=== PATIENT | female | born 1995 | race Caucasian/White ===

== ENCOUNTER 2021-04-28 20:22 | Emergency (ER) | payer OTHER, SELFPAY ==
[2021-04-28 20:25] VITALS: BP 134/93; PULSE 97; RESP 14; TEMP 36.5; O2SAT 100
--- NOTE | 2021-04-28 20:45 | ED.FEMALEGU ---
HPI - Female Genitourinary General Chief complaint: Urogenital-Female Stated complaint: Painful urination Time Seen by Provider: 04/28/21 20:34 Source: patient Mode of arrival: ambulatory Limitations: no limitations History of Present Illness HPI Narrative: This is a 26 year old female that presents to the ER for dysuria noted today. Associated with hematuria and urinary frequency. Reports no concern for STDs. Denies fever or flank pain. Related Data Allergies Allergy/AdvReac Type Severity Reaction Status Date / Time cephalexin Allergy Mild unknown Verified 04/28/21 20:46 dextromethorphan Allergy Mild unknown Verified 04/28/21 20:46 phenylephrine Allergy Mild unknown Verified 04/28/21 20:46 pyrilamine Allergy Mild Unknown Verified 04/28/21 20:46 amoxicillin Allergy Unknown unknown Verified 04/28/21 20:46 azithromycin Allergy Unknown HIVES Verified 04/28/21 20:46 Penicillins Allergy Unknown HIVES Verified 04/28/21 20:46 OLD COUGH SYRUP (POLY DM) Allergy Unknown HIVES Uncoded 04/28/21 20:46 Review of Systems Review of Systems: CONSTITUTIONAL: Denies fever GASTROINTESTINAL: Denies abdominal pain, nausea, vomiting GENITOURINARY: Reports dysuria and hematuria. MUSCULOSKELETAL: Denies back pain All systems reviewed & are unremarkable except as noted in HPI and below PMFSH Past Medical History Medical History Anxiety Depression Family History Family History Mother Depression Family history of bipolar disorder Social History Social History Smoking status: Never smoker Exam Narrative: GENERAL: Well-appearing, well-nourished, and in no acute distress. HEAD: Normocephalic, atraumatic. EYES: EOMI. CHEST: Clear to auscultation. No respiratory distress. No wheezes rales or rhonchi HEART: Regular rate and rhythm. No murmur heard. Normal peripheral pulses. ABDOMEN: No CVA tenderness EXTREMITIES: Normal range of motion. No edema. SKIN: Warm, dry, no rash. NEURO: No focal deficits. Alert and oriented x3. PSYCH: Normal mood and affect Course Vital Signs Vital signs: Vital Signs Temperature 97.7 F 04/28/21 20:25 Pulse Rate 97 04/28/21 20:25 Respiratory Rate 14 04/28/21 20:25 Blood Pressure 134/93 H 04/28/21 20:25 Pulse Oximetry 100 04/28/21 20:25 Temperature 97.7 F 04/28/21 20:25 Pulse Rate 97 04/28/21 20:25 Respiratory Rate 14 04/28/21 20:25 Blood Pressure 134/93 H 04/28/21 20:25 Pulse Oximetry 100 04/28/21 20:25 MDM - Female Genitourinary MDM Narrative Medical decision making narrative: Patient presents to the emergency department for dysuria and hematuria. She is afebrile and nontoxic-appearing. Denies any flank pain or abdominal pain. UA consistent with infection. Bedside test is negative. Patient will be started on oral antibiotics. She is to follow-up with primary care doctor. She was given warnings to return to the ER Lab Data Attestation: I reviewed the patient's lab results. Labs: Lab Results 04/28/21 Range/Units 20:44 Urine Color Red H (Yellow) Urine Appearance Clear (Clear) Urine pH 5.0 (5.0-9.0) Ur Specific [place] 1.023 (1.001-1.035) Urine Protein 3+ H (Negative) mg/dL Urine Glucose (UA) 1+ H (Negative) mg/dL Urine Ketones Negative (Negative) mg/dL Ur Blood (Man) 3+ H (Negative) Urine Nitrate Positive H (Negative) Urine Bilirubin Negative (Negative) Urine Urobilinogen 4.0 H (<2.0) mg/dL Leukocyte Esterase Rfl Trace H (Negative) ANAHI/UL Urine RBC >75 H (0-2) /hpf Urine WBC >75 H (0-3) /hpf Ur Squamous Epith Cells Few (Few) /hpf Urine Bacteria 1+ H (None) /hpf UCG Bedside Result Negative Reference Range: Negative Urine Characteristics Clear
[2021-04-28 21:07] LABS: Add Urine Microscopic? YES; Appearance Urine Clear (Clear); Bilirubin Urine Negative (Negative); Blood Urine 3+ (Negative); Color Urine Red (Yellow); Glucose Urine UA 1+ mg/dL (Negative); Ketones Urine Negative (Negative); Leukocyte Esterase Ur Trace LEU/UL (Negative); Nitrate Urine Positive (Negative); Protein Urine 3+ mg/dL (Negative); Specific Grav Ur 1.023 (1.001-1.035)
[2021-04-28 21:08] LABS: RBC Urine >75 /hpf (0-2); Squamous Epithelial Cell Urine Few /hpf (Few); WBC Urine >75 /hpf (0-3)
[2021-04-28 21:09] LABS: Bacteria Urine 1+ /hpf
== END 2021-04-28 21:45 | disposition home or self-care (01) ==
PROVIDERS: Physician Assistant; Emergency Provider Family Medicine; PCP Emergency Medicine
DX: N30.01 Acute cystitis with hematuria (principal)
CPT/HCPCS: 81001; 81025; 87077; 87086; 87088; 87186; 99283; A9270

== ENCOUNTER 2021-10-28 15:10 | Emergency (ER) | payer OTHER, SELFPAY ==
[2021-10-28 15:23] VITALS: BP 130/86; PULSE 129; RESP 16; TEMP 37.6; O2SAT 100
[2021-10-28 17:45] LABS: Add Urine Microscopic? YES; Appearance Urine Cloudy (Clear); Bacteria Urine Trace /hpf; Bilirubin Urine Negative (Negative); Blood Urine 1+ (Negative); Color Urine Yellow (Yellow); Glucose Urine UA Negative (Negative); Ketones Urine 1+ mg/dL (Negative); Leukocyte Esterase Ur 1+ LEU/UL (Negative); Mucus Urine Rare /lpf; Nitrate Urine Negative (Negative); Protein Urine 1+ mg/dL (Negative); Specific Grav Ur 1.024 (1.001-1.035); Squamous Epithelial Cell Urine Many /hpf (Few); Urobilinogen Urine Negative mg/dL (<2.0); WBC Urine 21-30 /hpf
--- NOTE | 2021-10-28 17:55 | ED.GENADULT ---
HPI - General Adult General Chief complaint: Fever Stated complaint: fever Time Seen by Provider: 10/28/21 16:45 History of Present Illness HPI narrative: 26-year-old female presents the emergency room with complaints of a vaginal pain. Patient states on Wednesday she shaved her genital region, and the following day noticed some discomfort around the recently shaved site. Patient was told the following day that her boyfriend had taken a course of acyclovir several years ago for herpes infection. Patient states that she is also experiencing dysuria. Patient denies any other exposure to STDs, but wishes to be evaluated. Patient reports an intermittent fever. Patient states that she had a cold possibly about 6 months ago. Related Data Home Medications Medication Instructions Recorded Confirmed dextroamphetamine-amphetamine 10/28/21 [Adderall] Allergies Allergy/AdvReac Type Severity Reaction Status Date / Time cephalexin Allergy Mild unknown Verified 05/09/21 09:36 dextromethorphan Allergy Mild unknown Verified 05/09/21 09:36 phenylephrine Allergy Mild unknown Verified 05/09/21 09:36 pyrilamine Allergy Mild Unknown Verified 05/09/21 09:36 amoxicillin Allergy Unknown unknown Verified 05/09/21 09:36 azithromycin Allergy Unknown HIVES Verified 05/09/21 09:36 Penicillins Allergy Unknown HIVES Verified 05/09/21 09:36 Review of Systems Review of Systems: CONSTITUTIONAL: Denies fever, chills, or sweats. EYES: Denies visual changes, redness, or discharge. ENT: Denies rhinorrhea, congestion, sore throat, or otalgia. CARDIOVASCULAR: Denies chest pain, palpitations, or edema. RESPIRATORY: Denies cough or dyspnea. GASTROINTESTINAL: Denies abdominal pain, nausea, vomiting, or diarrhea. GENITOURINARY: Reports dysuria SKIN: Reports pain to the perineum area MUSCULOSKELETAL: Denies back pain, joint pain, or myalgia. NEUROLOGIC: Denies headache, numbness, dizziness, or weakness. PSYCHIATRIC: Denies anxiety or depression. [facility] Past Medical History Medical History Anxiety Depression Family History Family History Mother Depression Family history of bipolar disorder Social History Social History Smoking status: Never smoker Exam Narrative: GENERAL: Well-appearing, well-nourished, and in no acute distress. HEAD: Normocephalic, atraumatic. EYES: PERRLA and EOMI. ENT: Nares clear, no rhinorrhea or epistaxis. Mucous membranes moist. Oropharynx without tonsillar hypertrophy exudate or other lesions. Bilateral TMs pearly puckett nonbulging NECK: Supple. No adenopathy or masses. No carotid bruits or JVD CHEST: Clear to auscultation. No respiratory distress. No wheezes rales or rhonchi HEART: Regular rate and rhythm. No murmur heard. Normal peripheral pulses. ABDOMEN: Soft, nontender, nondistended, normal active bowel sounds. EXTREMITIES: Normal range of motion. No edema. : Unable to assess due to pain SKIN: Several unroofed pearly, papular eruptions to the perineum. NEURO: No focal deficits. Alert and oriented x3. PSYCH: Normal mood and affect. Course Vital Signs Vital signs: Vital Signs Temperature 37.6 C 10/28/21 15:23 Pulse Rate 129 H 10/28/21 15:23 Respiratory Rate 16 10/28/21 15:23 Blood Pressure 130/86 10/28/21 15:23 Pulse Oximetry 100 10/28/21 15:23 Temperature 37.6 C 10/28/21 15:23 Pulse Rate 129 H 10/28/21 15:23 Respiratory Rate 16 10/28/21 15:23 Blood Pressure 130/86 10/28/21 15:23 Pulse Oximetry 100 10/28/21 15:23 Medical Decision Making Vital Signs Vital Signs: Vital Signs Temperature 37.6 C 10/28/21 15:23 Pulse Rate 129 H 10/28/21 15:23 Respiratory Rate 16 10/28/21 15:23 Blood Pressure 130/86 10/28/21 15:23 Pulse Oximetry 100 10/28/21 15:23 Temperature 37.6 C 10/28/21 15
[2021-10-29 12:23] LABS: Rapid Plasma Reagin Non-Reactive (NonReactive)
== END 2021-10-28 18:31 | disposition home or self-care (01) ==
PROVIDERS: Emergency Provider Nurse Practitioner Family; PCP Emergency Medicine
DX: J32.9 Chronic sinusitis, unspecified (principal); N39.0 Urinary tract infection, site not specified; F41.9 Anxiety disorder, unspecified; F32.A Depression, unspecified
CPT/HCPCS: 36415; 81001; 86592; 87070; 87086; 87255; 87491; 87591; 87808; 99284

== ENCOUNTER 2023-06-15 08:12 | Emergency (ER) | payer OTHER, SELFPAY ==
[2023-06-15 08:34] VITALS: BP 113/78; PULSE 129; RESP 16; TEMP 37.4; O2SAT 99
--- NOTE | 2023-06-15 08:48 | ED.URI ---
HPI - URI/Sore Throat General Chief Complaint: Upper Respiratory Infection Stated Complaint: Flu symptoms Time Seen by Provider: 06/15/23 08:48 Source: patient, RN notes reviewed and old records reviewed Mode of arrival: ambulatory Limitations: no limitations History of Present Illness HPI Narrative: 28 year old female who presents to [facility] with complaints of right ear pain and also right sided throat pain which started on Wednesday. Patient reports that she has not had a fever, patient reports that she has had a dry cough denies any shortness of breath. Patient reports that she has asthma and she has inhaler at home but has not felt that she needed to use it. Patient has been taking Theraflu for her symptoms . Patient reports that she is unsure if she has had a fever, has felt some chills and body aches. Patient had COVID test which was negative but symptoms only started yesterday,encouraged patient to retest tomorrow to make sure. 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 MD elicited complaint: cough, sore throat and other (right ear pain) Pertinent past history: asthma Onset (ago): day(s) (1) Pain scale (0-10): 4 Able to tolerate fluids by mouth: Yes Treatments prior to arrival: other (Theraflu) Related Data Home Medications Medication Instructions Recorded Confirmed No Home Medications 06/15/23 06/15/23 Allergies Allergy/AdvReac Type Severity Reaction Status Date / Time cephalexin Allergy Mild unknown Verified 06/15/23 08:23 dextromethorphan Allergy Mild unknown Verified 06/15/23 08:23 phenylephrine Allergy Mild unknown Verified 06/15/23 08:23 pyrilamine Allergy Mild Unknown Verified 06/15/23 08:23 amoxicillin Allergy Unknown unknown Verified 06/15/23 08:23 azithromycin Allergy Unknown HIVES Verified 06/15/23 08:23 Penicillins Allergy Unknown HIVES Verified 06/15/23 08:23 Review of Systems Review of Systems: CONSTITUTIONAL: Reports malaise, chills,no sweats, unknown if fever. EYES: Denies visual changes, redness, or discharge. ENT: Reports rhinorrhea, congestion, sinus pain, right otalgia and sore throat. CARDIOVASCULAR: Denies chest pain, palpitations, or edema. RESPIRATORY: Reports cough.? Denies dyspnea. GASTROINTESTINAL: Denies abdominal pain, nausea, vomiting, diarrhea SKIN: Denies rash or itching. MUSCULOSKELETAL: states some myalgia. NEUROLOGIC: Denies headache. All systems reviewed & are unremarkable except as noted in HPI and below PMFSH Past Medical History Medical History (Updated 06/15/23 @ 20:10 by Gia Ashley NP) Anxiety Depression Insomnia Obesity Family History Family History Mother Depression Family history of bipolar disorder Social History Social History Smoking status: Never smoker Alcohol intake: current Alcohol use details: social Substance use type: does not use Gender identity (if verbalized by the patient): Female Comments At time of signature, agree with nursing past medical, surgical, social and family history. There is no relevant family history pertinent to the presenting complaint Exam Narrative: GENERAL: Well-appearing, well-nourished, and in no acute distress. HEAD: Normocephalic EYES: PERRLA, conjunctivae clear ENT: Nares clear, turbinates edematous and erythematous, clear discharge. Mucous membranes moist. TM pearly puckett with dull light reflex bilaterally; no tragal tenderness. Oropharynx erythematous without lesions. Tonsils mildly enlarged and without exudate, no drooling, no hoarseness, no trismus, uvula midline. NECK: Supple. No lymphadenopathy CHEST: Clear to auscultation, breath sounds equal. No wheezing, rhonchi, rales, or stridor. No respiratory distress, speaks in full sentences.occasional dry cough, SAO2 99% on room air HEART: Regular rate and rhythm. No murmur heard. SKIN: Warm
== END 2023-06-15 09:05 | disposition home or self-care (01) ==
PROVIDERS: Emergency Provider Registered Nurse
DX: J06.9 Acute upper respiratory infection, unspecified (principal); J02.9 Acute pharyngitis, unspecified; Z20.822 Contact with and (suspected) exposure to COVID-19
CPT/HCPCS: 87081; 87426; 87804; 87880; 99213; C9803; G0463

== ENCOUNTER 2023-06-16 12:05 | Emergency (ER) | payer OTHER, SELFPAY ==
[2023-06-16 12:14] VITALS: BP 107/86; PULSE 134; RESP 18; TEMP 37.9; O2SAT 100
--- NOTE | 2023-06-16 12:23 | ED.URI ---
HPI - URI/Sore Throat General Chief Complaint: Upper Respiratory Infection Stated Complaint: Fever;Sore Throat Time Seen by Provider: 06/16/23 12:30 Source: patient and RN notes reviewed Mode of arrival: ambulatory Limitations: no limitations History of Present Illness HPI Narrative: 28-year-old female presents concern for worsening sore throat, painful swallowing. She reports she was seen here yesterday and diagnosed with upper respiratory infection. She reports she believes that is not upper respiratory infection because her tonsils are swollen. MD elicited complaint: cough and sore throat Related Data Allergies Allergy/AdvReac Type Severity Reaction Status Date / Time cephalexin Allergy Mild unknown Verified 06/15/23 08:23 dextromethorphan Allergy Mild unknown Verified 06/15/23 08:23 phenylephrine Allergy Mild unknown Verified 06/15/23 08:23 pyrilamine Allergy Mild Unknown Verified 06/15/23 08:23 amoxicillin Allergy Unknown unknown Verified 06/15/23 08:23 azithromycin Allergy Unknown HIVES Verified 06/15/23 08:23 Penicillins Allergy Unknown HIVES Verified 06/15/23 08:23 Review of Systems Review of Systems: CONSTITUTIONAL: Reports malaise. Denies chills, sweats, or fever. EYES: Denies visual changes, redness, or discharge. ENT: Denies rhinorrhea, congestion, sinus pain, otalgia. Reports painful swallowing sore throat. CARDIOVASCULAR: Denies chest pain, palpitations, or edema. RESPIRATORY: Reports cough. Denies dyspnea. GASTROINTESTINAL: Denies abdominal pain, nausea, vomiting, diarrhea SKIN: Denies rash or itching. MUSCULOSKELETAL: Denies myalgia. NEUROLOGIC: Denies headache. All systems reviewed & are unremarkable except as noted in HPI and below PMFSH Past Medical History Medical History (Updated 06/16/23 @ 12:41 by Sofy Aiken NP) Anxiety Depression Insomnia Obesity Family History Family History Mother Depression Family history of bipolar disorder Social History Social History Smoking status: Never smoker Alcohol intake: current Alcohol use details: social Substance use type: does not use Gender identity (if verbalized by the patient): Female Comments At time of signature, agree with nursing past medical, surgical, social and family history. There is no relevant family history pertinent to the presenting complaint Exam Narrative: GENERAL: Well-appearing, well-nourished, and in no acute distress. HEAD: Normocephalic EYES: PERRLA, conjunctivae clear ENT: Nares clear. Mucous membranes moist. TM pearly puckett with dull light reflex bilaterally; no tragal tenderness. Oropharynx erythematous without lesions. Tonsils enlarged with exudate, no drooling, no hoarseness, no trismus, uvula midline. NECK: Supple. No lymphadenopathy CHEST: Clear to auscultation, breath sounds equal. No wheezing, rhonchi, rales, or stridor. No respiratory distress, speaks in full sentences. HEART: Regular rate and rhythm. No murmur heard. SKIN: Warm, dry, no rash. NEURO: Alert and oriented x3. PSYCH: Normal mood and affect Course Course Emergency Course: Discussed viral versus bacterial pharyngitis. Repeated rapid strep test is still negative. Patient using an antibiotic not needed consider inch allergic to many antibiotics and her only choice of antibiotic to treat strep as clindamycin. Patient is agreeable to try a steroid and wait for culture before being prescribed antibiotic. Patient is aware of diagnosis, understands and agrees to treatment plan. Anticipatory guidance given. Patient agrees to follow-up as directed and is aware of reasons to seek care at the emergency department. Portions of this record may have been created with voice recognition software Level of Care: Express Care Visit Vital Signs Vital signs: Vital Signs Temperature 100.2 F H 06/16/23 12:14 Pulse Rate 134 H 11
== END 2023-06-16 12:43 | disposition home or self-care (01) ==
PROVIDERS: Emergency Provider Nurse Practitioner
DX: J03.80 Acute tonsillitis due to other specified organisms (principal); B97.89 Other viral agents as the cause of diseases classified elsewhere
CPT/HCPCS: 87081; 87880; 99213; G0463

== ENCOUNTER 2025-07-09 16:09 | Emergency (ER) | payer OTHER, SELFPAY ==
[2025-07-09 16:14] VITALS: BP 107/73; PULSE 90; RESP 20; TEMP 36.4; O2SAT 99
--- NOTE | 2025-07-09 16:39 | ED.ASTHMA ---
HPI - Asthma General Chief Complaint: Asthma Stated Complaint: ASthma Time Seen by Provider: 07/09/25 16:25 Source: patient, RN notes reviewed and old records reviewed Mode of arrival: ambulatory Limitations: no limitations History of Present Illness HPI Narrative: 30 year old female who presents to [facility] with complaints of having an asthma attack and her inhaler in 2019. Patient reports that she was at a concert the other night and was exposed to tobacco and had an attack and had to use her inhaler and found that it was . Patient reports that she had to use her inhaler again today and has noted an occasional cough. Patient reports no present shortness of breath or any wheezing. She reports that she called her doctors office and couldn't get appointment till after next week. MD complaint: asthma attack (recently needs inhaler refill its ) Onset (ago): day(s) (3) Severity: mild Associated symptoms: dry cough Asthma History: childhood onset Treatments Prior to Arrival: other (used inhaler prn as needed ) Related Data Allergies Allergy/AdvReac Type Severity Reaction Status Date / Time cephalexin Allergy Mild unknown Verified 06/15/23 08:23 dextromethorphan Allergy Mild unknown Verified 06/15/23 08:23 phenylephrine Allergy Mild unknown Verified 06/15/23 08:23 pyrilamine Allergy Mild Unknown Verified 06/15/23 08:23 amoxicillin Allergy Unknown unknown Verified 06/15/23 08:23 azithromycin Allergy Unknown HIVES Verified 06/15/23 08:23 Penicillins Allergy Unknown HIVES Verified 06/15/23 08:23 Review of Systems Review of Systems: CONSTITUTIONAL: Denies malaise, chills, sweats, or fever. EYES: Denies visual changes, redness, or discharge. ENT: Reports no rhinorrhea, congestion, sinus pain, otalgia or sore throat. CARDIOVASCULAR: Denies chest pain, palpitations, or edema. RESPIRATORY: Reports occasional dry cough.? Denies dyspnea, had recent asthma attack GASTROINTESTINAL: Denies abdominal pain, nausea, vomiting, diarrhea SKIN: Denies rash or itching. MUSCULOSKELETAL: Denies myalgia. NEUROLOGIC: Denies headache. All systems reviewed & are unremarkable except as noted in HPI and below PMFSH Past Medical History Medical History Asthma Obesity Insomnia Anxiety Depression Family History Family History Mother Depression Family history of bipolar disorder Social History Social History Smoking status: Never smoker Alcohol intake: current Alcohol use details: social Substance use type: does not use Gender identity (if verbalized by the patient): Female Comments At time of signature, agree with nursing past medical, surgical, social and family history. There is no relevant family history pertinent to the presenting complaint Exam Narrative: GENERAL: Well-appearing, well-nourished, obese and in no acute distress. HEAD: Normocephalic EYES: PERRLA, conjunctivae clear ENT: Nares clear, turbinates edematous and erythematous, clear discharge. Mucous membranes moist. TM pearly puckett with dull light reflex bilaterally; no tragal tenderness. Oropharynx erythematous without lesions. Tonsils not enlarged and without exudate, no drooling, no hoarseness, no trismus, uvula midline. NECK: Supple. No lymphadenopathy CHEST: Clear to auscultation, breath sounds equal. No wheezing, rhonchi, rales, or stridor. No respiratory distress, speaks in full sentences.occasional dry cough noted, SAO2 99% on room air HEART: Regular rate and rhythm. No murmur heard. SKIN: Warm, dry, no rash. NEURO: Alert and oriented x3. PSYCH: Normal mood and affect Course Course Level of Care: Express Care Visit Vital Signs Vital signs: Vital Signs Temperature 36.4 C 07/09/25 16:14 Pulse Rate 90 07/09/25 16:14 Respiratory Rate 20 07/09/25 16:14 Blood Pressure 107/73 07/09/25 16:14 Pulse Oximetry 99 07/09/25 16:14 Oxygen Delivery Room Air 07/09/25 16:14 Temperature 36.4 C 07/09/25 16:14 Pulse Rate 90 07/09/25 16:14 Respiratory Rate 20 07/09/25 16:14 Blood Pressure 107/73 07/09/25 16:14 Pulse Oximetry 99 07/09/25 16:14 Oxygen Delivery Room Air 07/09/25 16:14 reviewed MDM MDM Narrative Medical decision making narrative: Patient reports recent asthma attack and inhaler has here today for evaluation and new inhaler. Patient reports that she did have to us inhaler earlier today and has had dry cough, no dyspnea or tachypnea noted SAO2 99% on room air. Patient nontoxic in appearance and appropriate for outpatient treatment.Anticipatory guidance and reasons to seek care in ED reviewed with patient understanding voiced. Differential Diagnosis Differential Diagnosis: Differential diagnostic considerations for asthma include acute exacerbation of asthma, status asthmaticus, acute asthmatic bronchitis, PE, pneumonia, COPD exacerbation, pulmonary edema, ARSD, pneumothorax, foreign body in trachea. Critical Care Time Critical Care Time Critical Care Time: No Discharge Plan Discharge Clinical Impression: Asthma Qualifiers: Asthma severity: mild Asthma persistence: intermittent Asthma complication type: uncomplicated Qualified Code(s): J45.20 - Mild intermittent asthma, uncomplicated Patient Disposition: Home Condition: Stable Instructions: Antibiotic Form, Asthma (ED) Additional Instructions: Increase fluids especially juices and water [id number] cough and cold medicine of your choice for your symptoms avoid respiratory irritants as much as possible Continue your inhaler/nebulizer as directed Zyrtec or Claritin daily heat to the face 20-30 minutes 4-6 times a day for pain Salt water gargles, throat lozenges or throat sprays as desired If your symptoms persist, change or worsen significantly before you can contact your personal physician then please, without delay, go to the emergency department for further evaluation. Follow-up with PCP in 7-10 days or sooner if needed Patient Language: B[place] Prescriptions: New albuterol sulfate [Ventolin HFA] 90 mcg/actuation HFA aerosol inhaler 2 puff inhalation QID PRN (Reason: shortness of breath or wheezing) Qty: 8.5 0RF Rx Instructions: whatever is covered on her insurance Follow-up/Referrals: PHYSICIAN,TECHNICAL AIDE [Primary Care Provider, Internal Medicine] Time of Disposition: 16:48 Quality [place] Coma Scale Eyes: Open Verbal: Oriented and Alert Motor: Follows Commands [place] Coma Total Score: 15
--- OUTSIDE RECORDS SUMMARY | 2025-07-09 18:11 | XMS_ITS | Clinical Summary ---
Author Organization [facility] Address [address] [place] [address] Care Team Providers Care Boat Dispatcher Name Role Phone Dariela Jackson MD Primary Care Provider [phone] Allergies Active Allergy Reactions Criticality Noted Date Comments Amoxicillin Hives 10/19/2022 Sulfamethoxazole-Trimethoprim Anaphylaxis High 10/19 Penicillins Hives 10/19/2022 Azithromycin Hives 10/19/2022 Medications levonorgestrel (MIRENA, 52 MG,) 20 MCG/DAY IUD 1 Intra Uterine Device by Intrauterine route once. Active valACYclovir (VALTREX) 500 MG tablet Take 1 tablet (500 mg total) by mouth. Active vitamin D3 (CHOLECALCIFERO L) 25 mcg tabletIndicatio ns:Low energy,Other fatigue,Low vitamin D level Take 1 tablet (25 mcg total) by mouth daily. 90 tablet 1 3 Active tirzepatide (MOUNJARO) 2.5 MG/0.5ML injectionIndica tions:Obesity (BMI 30.0-34.9),BMI 34.0-34.9,adult Inject 2.5 mg into the skin every 7 days. 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 Low vitamin D level 10/21/2022 BMI 33.0-33.9,adult 10/21/2022 Immunizations Immunization Administration Dates Next Due Dtap (Acel-Immune) 02/05/1999 Dtp/Hib (Tetramune) 10/20/1995, 5,1994,06/12 HPV GARDASIL 9-VALENT 05/15/2022 HPV4 (Gardasil) 03/05/2009 Hepatitis A (Generic) 03/05/2009 Hepatitis B Pediatric 1994,1994,02/25 Influenza (Generic) 05/03/2021,06/03/2016,2015 Influenza Adult (Generic) 05/15/2022,05/05/2018, 06/11/2017 MMR (MMRII) 02/05/1999,10/20/1995 MODERNA COVID-19 BIVALENT (1 2+), MRNA, LNP-S, PF 05/15/2022 Meningococcal (Generic) 03/05/2009 Polio Opv (Generic) 02/05/1999, 5,1994,06/12 Tdap (Generic) 02/01/2018,03/05/2009 Varicella (Varivax) 03/05/2009,05/12/1998 Family History Medical History Relation Comments No Known Problems Father Depression Mother Obesity Mother Relation Status Comments Father Alive Mother Alive Social History Tobacco Use Types Packs/Day Years Used Date Smoking Tobacco: Never Smokeless Tobacco: Never Tobacco Cessation:Counseling Given: Not Answered Alcohol Use Standard Drinks/Week Comments Yes 3.3 (1 standard drink = 0.6 oz p ure alcohol) PHQ-2 Answer Date Recorded Patient Health Questionnaire-2 Score 0 11/04/2022 Comments No Sex and Gender Information Value Date Recorded Sex Assigned at Not on file Legal Sex Female 2:52 PM MANAGER LVN Gender Identity Not on file Sexual Orientation Not on file Last Filed Vital Signs Vital Sign Reading Time Taken Comments Blood Pressure 122/70 11/04/2022 1:24 PM CDT Pulse 89 11/04/2022 1:24 PM CDT Temperature 36.8 C (98.2 F) 11/04/2022 1:24 PM CDT Respiratory Rate 16 11/04/2022 1:24 PM CDT Oxygen Saturation 98% 11/04/2022 1:24 PM CDT Inhaled Oxygen Concentration - - Weight 93.4 kg (206 lb) 11/04/2022 1:24 PM CDT Height 165.1 cm (5' 5) 11/04/2022 1:24 PM CDT Body Mass Index 34.28 11/04/2022 1:24 PM CDT Plan of Treatment Health Maintenance Due Date Last Done Comments Annual Physical 1997 Hepatitis A Vaccines (2 of 2 - 2-dose series) 09/05/2009 03/05/2009 Hepatitis C 2012 Cervical Cancer Screening Pap with HPV Testing (Age 30 to 64) Every 5 Years 2024 11/12/2022 COVID-19 Vaccine ( season) 2025 05/15/2022, 05/03/2021, 08/10/2020, Additional history exists Influenza Adult (#1) 2025 05/15/2022, 05/03/2021, 05/05/2018, Additional history exists Cervical Cancer Screening Pap Smear (Age 30 to 64) Every 3 Years 11/12/2025 11/12/2022 Cervical Cancer Screening with HPV 11/12/2025 DTaP, Tdap and Td Vaccines (4 - Td or Tdap) 02/02/2028 02/01/2018, 03/05/2009, 02/05/1999, Additional history exists Hepatitis B Vaccines Completed 1994, 1994, 1994 Meningococcal Vaccine Aged Out 03/05/2009 No kyle ray eligible based on patient's age to complete this topic HPV Vaccines Completed 05/15/2022, 03/05/2009 Meningococcal B Vaccine Aged Out No l onger eligible based on patient's age to complete this topic Pneumococcal Vaccine: Pediatrics (0 to 5 Years) and At-Risk Patients (6 to 49 Years) Aged Out No longer eligible based on patient's age to complete this topic RSV Immunizations Under 20 Months Aged Out No longer eligible based on patient's age to complete this topic Procedures Procedure Name Priority Date/Time Associated Diagnosis Comments OUTSIDE CYTOPATH CERV/VAG IN TERPRET (PAP) 11/12/2022 OUTSIDE CYTOPATH CERV/VAG IN TERPRET (PAP) (SCAN ORDER) 11/12/2022 from Last 3 Months or Most Recently Relevant to Health Maintenance Results * PAP SMEAR WITH HPV (11/12/2022) 11/12/2022 [facility] Scanned SCANNING Final Resu lt * PAP SMEAR (11/12/2022) 11/12/2022 [facility] Scanned SCANNING Final Resu lt from Last 3 Months or Most Recently Relevant to Health Maintenance Insurance C[employer] Care Teams Boat Dispatcher Relationship Specialty Start Date End Date Dariela Jackson MD [address] [facility] [address] [place] [address] PCP - General INTERNAL MEDICINE 12/28/22
--- OUTSIDE RECORDS SUMMARY | 2025-07-09 18:11 | XMS_ITS | Clinical Summary ---
Author Organization [facility] Address [address] [place] [address] Care Team Providers Care Dry Roller Name Role Phone Unavailable Primary Care Provider Unavailabl e Social History Tobacco Use Types Packs/Day Years Used Date Smoking Tobacco: Never Assessed Comments Unknown Sex and Gender Information Value Date Recorded Sex Assigned at Not on file Legal Sex Female 4:24 PM EDT Gender Identity Not on file Sexual Orientation Not on file Plan of Treatment Not on file Medical Devices Not on file
--- OUTSIDE RECORDS SUMMARY | 2025-07-09 18:11 | XMS_ITS | Clinical Summary ---
Author Organization [facility] [employer] Address [address] [place] [address] Care Team Providers Care Spring Winder Name Role Phone Farhan Marin MD Primary Care Provider [phone] Source Comments [facility],non-owned Affiliates and Associated Physician Practices is amultiple site organization consisting of ambulatory clinics and hospital sitesin [place], [place], [place] and [place]. This disclosure is being madepursuant to the Care Everywhere program and may not contain all information available regarding this patient. Last updated 18.[facility] [employer] Allergies Active Allergy Reactions Criticality Noted Date Comments Amoxicillin Urticaria Medium 02/02/2018 Penicillins Urticaria Medium 02/02/2018 Azithromycin Urticaria Medium 02/02/2018 Immunizations Immunization Administration Dates Next Due Covid Pfizer primary monoval ent 12+ yr 0.3mL Purple cap 08/10/2020,07/18/2020 Social History Tobacco Use Types Packs/Day Years Used Date Smoking Tobacco: Never Assessed Comments Unknown Sex and Gender Information Value Date Recorded Sex Assigned at Female 07/20/2020 6:45 AM SENIOR TRAINER Legal Sex Female 7:51 AM SENIOR TRAINER Gender Identity Female 07/20/2020 6:45 AM SENIOR TRAINER Sexual Orientation Straight 07/20/2020 6: 45 AM SENIOR TRAINER Plan of Treatment Health Maintenance Due Date Last Done Comments HIV SCREENING 2009 HEPATITIS C SCREENING 03/19/2012 DTAP/TDAP/TD VACCINES (1 - Tdap) 2013 HEPATITIS B VACCINE (1 of 3 - 19+ 3-dose series) 2013 PAP SMEAR 2015 HPV VACCINE (1 - 3-dose SCDM series) 2021 DEPRESSION SCREENING 07/26/2024 COVID-19 VACCINE ( season) 2025 05/03/2021, 08/10/2020, 07/18/2020 INFLUENZA VACCINE (#1) 2025 , 05/05/2018, 06/11/2017, Additional history exists ZOSTER VACCINE (1 of 2) 2044 HIB VACCINE Aged Out No longer eligi ble based on patient's age to complete this topic MENINGOCOCCAL (Group B) VACCINE SHARED DECISION-MAKING Aged Out No longer eligible based on patient's age to complete this topic MENINGOCOCCAL GROUPS A/C/Y/W VACCINE Aged Out No longer eligible based on patient's age to complete this topic PNEUMOCOCCAL VACCINE Aged Out No long er eligible based on patient's age to complete this topic [place] [address] [place] [address] [facility] * Guarantor: E-SCREEN,SOIL Account Type Relation to Patient Date of Phone Billing Address Company Employer ATTN [employer] [address] Care Teams Spring Winder Relationship Specialty Start Date End Date Farhan Marin MD [facility] [address] [place] [address] PCP - General Internal Medicine 02/02/18
--- OUTSIDE RECORDS SUMMARY | 2025-07-09 18:11 | XMS_ITS | Clinical Summary ---
Author Organization [facility] Address [address] [place] [id number] Care Team Providers Care It Admin Name Role Phone Lona Castellon MD Primary Care Provider [phone] Allergies Active Allergy Reactions Criticality Noted Date Comments Azithromycin Hives Medium 06/03/2021 Penicillins Hives Medium 06/03/2021 Medications No known medications Active Problems Problem Noted Date Diagnosed Date Acute cystitis with hematuria 06/03/2021 Assessment & Plan (06/03/2021 6:16 PM RETINA SUBSPECIALIST): Due to limitations with virtual visit physical assessment and labs deferred at this time. Pt was advised increase fluids, genital hygiene, and frequent voiding to assist with clearance of infection. Prescribed macrobid She was advised of side effects, dosage, and use of antibiotics. Will send prescription for macrobid to patient pharmacy. Instructed to patient on risk and benefits of medication. All red flags reviewed. Patient should follow up with PCP or report to ED for any worsening symptoms. Patient verbalized understanding and agreed to plan of care at this time. Social History Tobacco Use Types Packs/Day Years Used Date Smoking Tobacco: Never Assessed Personal Safety Answer Date Recorded Have you ever been in or are you currently in a harmful physical or emotional relationship or is someone making you feel afraid or unsafe? Denies 10/22/2023 Comments Unknown Sex and Gender Information Value Date Recorded Sex Assigned at Not on file Legal Sex Female 5:51 PM RETINA SUBSPECIALIST Gender Identity Not on file Sexual Orientation Not on file Last Filed Vital Signs Vital Sign Reading Time Taken Comments Blood Pressure 159/98 10/22/2023 3:03 AM CDT Pulse 101 10/22/2023 3:03 AM CDT Temperature 36.7 C (98 F) 10/22/2023 1:10 AM CDT Respiratory Rate 18 10/22/2023 3:03 AM CDT Oxygen Saturation 100% 10/22/2023 3:03 AM CDT Inhaled Oxygen Concentration - - Weight 90.7 kg (200 lb) 10/22/2023 1:10 AM CDT Height - - Body Mass Index - - Plan of Treatment Health Maintenance Due Date Last Done Comments Cervical Cancer Screening 1994 Depression Screening 1994 Hepatitis C Screening 1994 HPV Vaccines (2 - 2-dose series) 09/05/2009 03/05/2009 Regular Well Visit/Exam 18-64 2012 Covid-19 Vaccine ( season) 2025 08/10/2020, 07/18/2020 Influenza Vaccine (#1) 2025 , 05/03/2021, 05/05/2018, Additional history exists DTaP/Tdap/Td Vaccine (8 - Td or Tdap) 02/02/2028 02/01/2018, 03/05/2009, 02/05/1999, Additional history exists Hepatitis B Screening Completed 1994 , 1994, 1994 Varicella Vaccines Completed 03/05/2009, 05/12/1998 Pneumococcal vaccine <65 Aged Out No longer eligible based on patient's age to complete this topic Insurance [employer] OPEN ACCESS [employer] OPEN ACCESS Care Teams It Admin Relationship Specialty Start Date End Date Lona Castellon MD [address] [address] PCP - General 12/28/16
--- OUTSIDE RECORDS SUMMARY | 2025-07-09 18:11 | XMS_ITS | Encounter Summary ---
Author Organization [facility] Address [facility] [place] [address] Care Team Providers Care Street Light Cleaner Name Role Phone Román Javier MD Primary Care Pr ovider Unavailable Dariela Jackson MD Primary Care Provider [phone] Encounter Details Date Type Department Care Team (Late st Contact Info) Description 11/09/2022 [employer] Message Enc [facility] - [address] [place] [address] Román Javier MD [employer] Prescription Social History Tobacco Use Types Packs/Day Years Used Date Smoking Tobacco: Never Smokeless Tobacco: Never Alcohol Use Standard Drinks/Week Comments Yes 3.3 (1 standard drink = 0.6 oz p ure alcohol) PHQ-2 Answer Date Recorded Patient Health Questionnaire-2 Score 0 11/04/2022 Comments No Sex and Gender Information Value Date Recorded Sex Assigned at Not on file Legal Sex Female 2:52 PM BRANCH SALES AND SERVICE REPRESENTATIVE Gender Identity Not on file Sexual Orientation Not on file COVID-19 Exposure Response Date Recorded In the last 10 days, have yo u been in contact with someone who was confirmed or suspected to have Coronavirus/COVID-19? No / Unsure 11/04/2022 1:06 PM CDT documented as of this encounter Plan of Treatment Not on file documented as of this encounter Visit Diagnoses Not on filedocumented in this encounter Care Teams Street Light Cleaner Relationship Specialty Start Date End Date Román Javier MD PCP - General FAMILY PRACTICE 10/19/22 12/27/22 Dariela Jackson MD [address] [address] PCP - General INTERNAL MEDICINE 12/28/22 documented as of this encounter
== END 2025-07-09 16:57 | disposition home or self-care (01) ==
PROVIDERS: Emergency Provider Registered Nurse
DX: J45.20 Mild intermittent asthma, uncomplicated (principal); E66.9 Obesity, unspecified; Z68.36 Body mass index [BMI] 36.0-36.9, adult
CPT/HCPCS: 99213; G0463